=== PATIENT | female | born 1980 | race Caucasian/White ===

== ENCOUNTER 2018-06-17 15:57 | Emergency (ER) | payer OTHER ==
[2018-06-17 16:15] VITALS: BP 139/90
--- NOTE | 2018-06-17 16:34 | EDPHY ---
H & P Time Seen by Provider: 06/17/18 16:25 HPI/ROS: CHIEF COMPLAINT: Sore on anus HISTORY OF PRESENT ILLNESS: The patient is a 37-year-old female who presents emergency department with a sore and lump on her anus. Patient states that she has been constipated. She has used a suppository to help with this. She developed severe rectal pain and a bump on her anus last evening. It does not radiate. She has not had a bowel movement. She denies fevers or chills. No nausea or vomiting. REVIEW OF SYSTEMS: 10 systems were reveiwed and are negative with the exception of the elements mentioned in the history of present illness. Smoking Status: Never smoked Physical Exam: Vitals noted. 37.3 General Appearance: Alert and no distress. Head: Pupils equal. Normal. Respiratory: No respiratory distress. Cardiac: regular rate and rhythm. Abdomen: Benign Rectum: The patient has an external hemorrhoid present. This does not feel thrombosed. There is no deep palpable mass. No palpable abscess. Extremities: Full range of motion, normal appearing. Skin: No rashes or lesions. Neuro: Alert. Normal mood and affect. Constitutional: Initial Vital Signs Temperature (C) 37.3 C 06/17/18 16:11 Heart Rate 67 06/17/18 16:11 Respiratory Rate 18 06/17/18 16:11 Blood Pressure 139/90 H 06/17/18 16:11 O2 Sat (%) 96 06/17/18 16:11 O2 Delivery Mode Room Air Allergies/Adverse Reactions: No Known Allergies Allergy (Unverified 06/17/18 16:10) Home Medications: Medication Instructions Recorded ACETAZOLAMIDE 06/17/18 Aspirin 81mg (*) 06/17/18 Keppra 06/17/18 Levothyroxine 06/17/18 Medical Decision Making ED Course/Re-evaluation: In the emergency department I discussed possible etiologies with the patient. I answered all her questions. The at this time I do not feel the patient needs further imaging. She was given instruction on hemorrhoid care. The patient's hemorrhoid is not feel thrombosed under not feel he needs excision at this time. Differential Diagnosis: My differential includes but is not limited to external hemorrhoid, thrombosed hemorrhoid, rectal abscess, rectal mass, foreign body Departure - Departure Disposition: Home, Routine, Self-Care Clinical Impression: External hemorrhoid Condition: Good Instructions: Hemorrhoids (ED) Additional Instructions: Use a Sitz bath 4-5 times daily. Take Metamucil to soften your stool. You can take both ibuprofen and acetaminophen for pain. Follow the instructions on the bottle. You can use preparation H cream for discomfort. Return with increasing pain, increasing mass size, difficulty with bowel movement. You been given follow-up with a general surgeon. Call to make the next available appointment for recheck. Referrals: Doris Garcia MD [Medical Doctor] - 2-3 days, if not improved
== END 2018-06-17 16:47 | disposition home or self-care (01) ==
DX: K64.4 Residual hemorrhoidal skin tags (principal)